=== PATIENT | male | born 1985 | race Caucasian/White ===

== ENCOUNTER → 2018-03-10 08:13 | Outpatient (CLI) | payer OTHER, SELFPAY | PROVIDERS: Visit Provider Nurse Practitioner | DX: A49.02 Methicillin resistant Staphylococcus aureus infection, unspecified site (principal); T14.8XXA Other injury of unspecified body region, initial encounter | CPT/HCPCS: 87070; 87075; 87077; 87186; 87205 ==

== ENCOUNTER → 2018-05-13 07:29 | Outpatient (CLI) | payer OTHER, SELFPAY ==
[2018-03-09 19:40] VITALS: BMI 36.5
== END ==
PROVIDERS: Referring Provider Nurse Practitioner; Visit Provider Nurse Practitioner
DX: L03.90 Cellulitis, unspecified (principal); Z22.322 Carrier or suspected carrier of Methicillin resistant Staphylococcus aureus; T14.8XXA Other injury of unspecified body region, initial encounter
CPT/HCPCS: 87070; 87075; 87077; 87186; 87205